=== PATIENT | male | born 1975 | race Two or more races ===

== ENCOUNTER → 2017-06-18 10:26 | Outpatient (CLI) | payer OTHER, SELFPAY ==
--- NOTE | 2017-06-18 15:15 | ASPS_PTH ---
PATIENT: AMY NUNEZ LOC: [facility] U#:[id number] AGE/SX: 50/M ROOM: RE06/18/[address]: Dr. Dedrick Suero MD : 1975 BED: DIS: SPEC #: [id number] RECD: 06/19/17 10:18 STATUS: EVERARDO ARETHA #: [id number] DOT: 06/18/17 15:[address]: Dedrick Suero DEPT: CYTOLOGY RECD BY: Ricardo Bettencourt ENTERED: 06/19/17 12:04 SP TYPE: ASPIRATION OTHR DR: Dr. Adria Esparza MD Tissues: A - Thyroid gland, NOS B - Thyroid gland, NOS C - Thyroid isthmus Procedures: Pap Stain (control) Special Stain Group II Cytology Other HEADER OPERATION: Thyroid FNA x3 PRE-OP DIAGNOSIS: Bilateral thyroid nodules TISSUE SUBMITTED: A ? Right thyroid slides (4), B ? Left thyroid slides (6), C ? Isthmus slides (6) DIAGNOSIS CYTOLOGY A. Fine needle aspiration, right thyroid nodule (smears): Adequate for evaluation. Benign, consistent with colloid nodule. Chronic inflammation. B. Fine needle aspiration, left thyroid nodule (smears): Follicular nodule of uncertain significance. See cytology study and comment. C. Fine needle aspiration, thyroid isthmus (smears): Adequate for evaluation. Negative, consistent with colloid nodule. Mild chronic inflammation. AM:benita 06/20/17 COMMENT B. Clinical correlation is suggested. CYTOLOGY STUDY Slides are reviewed. B. The specimen contains follicular cells in microfollicular pattern. The pattern contains minimal chronic inflammation. CYTOLOGY GROSS A - Received are four smears labeled with the patient's name and designated per the requisition as right thyroid. Submitted for staining. B - Received are six smears labeled with the patient's name and designated per the requisition as left thyroid. Submitted for staining. C - Received are six smears labeled with the patient's name and designated per the requisition as isthmus. Submitted for staining. 06/19/17 TC:? CPT: 14238 x3
== END ==
PROVIDERS: Family Provider Family Medicine; PCP Family Medicine; Visit Provider Surgery
DX: E04.1 Nontoxic single thyroid nodule (principal)
CPT/HCPCS: 88161; 88313

== ENCOUNTER 2017-07-23 09:35 | Observation (INO) | payer OTHER, SELFPAY ==
[2017-07-20 17:12] LABS: Hematocrit 38.7 % (40-54); Hemoglobin 13.5 g/dl (13.0-16.5); Mean Corp Hgb Conc 34.9 g/gl (32-36); Mean Corpuscular Volume 88.8 fL (80-94); Platelet Count 223 K/mm3 (150-450); RBC Distribution Width CV 12.4 % (11.6-14.6); RBC Distribution Width SD 39.8 fl (35.1-43.9); Red Blood Count 4.36 M/mm3 (4.6-6.2); White Blood Count 5.7 K/mm3 (4.4-11.0)
--- NOTE | 2017-07-20 17:12 | EKG12_ITS ---
Test Reason : PREOP Blood Pressure : / mmHG Vent. Rate : 065 BPM Atrial Rate : 065 BPM P-R Int : 148 ms QRS Dur : 108 ms QT Int : 412 ms P-R-T Axes : 045 005 030 degrees QTc Int : 428 ms Normal sinus rhythm with sinus arrhythmia Normal ECG Confirmed by CHARLENE WEBB, KRYSTYNA ([id number]), assignment desk editor MARIANO ZABALA ([id number]) on 07/24/2017 4:38:16 PM Referred By: Dedrick Suero Confirmed By:KRYSTYNA CHANG MD
[2017-07-20 17:14] LABS: Scan Indicated on CBC? Y/N NO
[2017-07-20 18:28] LABS: Anion Gap 6 (5-15); BUN 17 mg/dL (7-18); BUN/Creat Ratio 17.3 RATIO (10-20); Calcium,Total 8.9 mg/dL (8.5-10.1); Chloride 104 mmol/L (98-107); Creatinine, Serum 0.98 mg/dL (0.70-1.30); EST Glomerular Filtration Rate 88 mL/min (>60); Est Glom Filt Rate - Afr Amer 106 mL/min (>60); Glucose 68 mg/dL (74-106); Phosphorus 3.4 mg/dL (2.5-4.9); Potassium 3.9 mmol/L (3.5-5.1); Sodium Level 140 mmol/L (136-145)
[2017-07-23] VITALS (8 sets, daily range): BP systolic 112–158; BP diastolic 67–102; PULSE 54–80; RESP 14–16; TEMP 36.2–36.9; O2SAT 89–98; BMI 39.4
--- NOTE | 2017-07-23 07:15 | THYROID_PTH ---
PATIENT: AMY NUNEZ LOC: [facility] U#:[id number] AGE/SX: 42/M ROOM: [facility] RE07/23/[address]: Dr. Dedrick Suero MD : 1975 BED: 1 DIS: 07/23/2017 SPEC #: [id number] RECD: 07/23/17 09:57 STATUS: EVERARDO CARIAS #: [id number] DOT: 07/23/17 07:[address]: Dedrick Suero DEPT: SURGICAL PATHOLOGY RECD BY: Mesfin Bella ENTERED: 07/23/17 10:17 SP TYPE: THYROID OTHR DR: Dr. Adria Esparza MD Tissues: Thyroid gland, NOS Procedures: Surgery Specimen Level V HEADER OPERATION: Total thyroidectomy PRE-OP DIAGNOSIS: Multiple thyroid nodules TISSUE SUBMITTED: Total thyroid, suture casey anterior-superior aspect of left lobe MICROSCOPIC DIAGNOSIS Thyroid, total thyroidectomy: Colloid nodules with degenerative change. Mild chronic inflammation. No parathyroid glands identified. AM:benita 07/25/17 COMMENT Reference is made to the patient?s previous cytology from 06/20/17 ([id number]) in which benign colloid nodules and follicular nodule of uncertain significance was identified. MICROSCOPIC DESCRIPTION Slides are reviewed. GROSS DESCRIPTION Received in fixative is one container labeled with the patient's name and designated thyroid. The specimen consists of a lobulated moulton thyroid measuring 8 x 7.5 x 2.8 cm and weighing 60 gm. The specimen has been oriented by the surgeon. Serial sections of the right and left lobes and isthmic region reveal lobulated cut surfaces. The lobules have a gelatinous cut appearance. Financial Sales Professional sections are submitted in ten cassettes as follows: 1-4 ? right thyroid lobe, 5 & 6 ? isthmus, 7-10 ? left thyroid lobe. / AM:benita 07/24/17 TC:1 CPT: 82868
--- NOTE | 2017-07-23 07:26 | PCM.DC.GS ---
Discharge Diet: Light diet - advance as tolerated - if you have questions about your diet instructions, please talk to you doctor. Discharge Activity: May Not Drive - for 1 week or while taking narcotic pain medicine. May shower in (days): 1 Lifting Restrictions: 10 pounds Call your doctor if your incision/area has: Continuous Slow Oozing, Sudden Increased Bleeding, Increased Pain/ Swelling, Increased Redness, Foul Smelling Discharge Call your doctor if you observe: Fever of 101 or Higher Suture Line Care: Avoid Pulling/Pushing, Avoid Pinching/Bending Additional Dressing/Incision Instructions:: May protect the incision with gauze and tape if needed to protect from clothing--otherwise, may leave it open Allergies/Adverse Reactions: Allergies doxycycline Allergy (Intermediate, Verified 07/17/17 13:04) rash gardenias Allergy (Intermediate, Uncoded 07/17/17 13:04) rash Medications to take at Discharge acyclovir 400 mg tablet 400 mg PO DAILY tab 06/05/17 armodafinil 250 mg tablet 250 mg PO PRN PRN 06/05/17 cetirizine 10 mg tablet 10 mg PO DAILY 06/05/17 cholecalciferol (vitamin D3) 50,000 unit capsule 200 unit PO DAILY 06/05/17 diphenhydramine 25 mg-acetaminophen 500 mg tablet 1 tab PO QHS PRN 06/05/17 ferrous fumarate 325 mg (106 mg iron) tablet 324 mg PO DAILY tab 06/05/17 multivitamin tablet 1 tab PO DAILY 06/05/17 Primary Care Physician: Adria Esparza MD [Primary Care Provider] - Please Follow Up With: Dedrick Suero MD - [phone] When: Call to make an appointment to be seen in about 10 days.
[2017-07-23] MEDS: Bupivacaine Mpf 0.5% 30 ML VIAL (09:33)
--- NOTE | 2017-07-23 09:55 | OP.PCM_ITS ---
Problem List (1) Multinodular goiter Status: Acute Report of Operation Date of Procedure: 07/23/17 Pre-Operative Diagnosis: Symptomatic multinodular goiter Post-Operative Diagnosis: Same Surgery/Procedure Performed:: Total thyroidectomy Description of Surgical Findings:: Timeout and informed consent was obtained. 42-year-old gent was taken operating. He was placed upon the table. He underwent general ventricular- based anesthesia. Shoulder roll was placed. Head of bed was slightly elevated. Neck was sterilely prepped and draped. A suprasternal transverse incision was created. Sharp dissection carried down through the substance tissue. Platysma was incised. Platysmal flaps are raised. Strap muscles were incised vertically. [place] was gained to the right lobe of thyroid carefully and tediously this was dissected free. The right lobe was noted to be markedly enlarged multinodular. Inferior portion was addressed first as that could be dissected most easily. Found the inferior parathyroid and carefully preserved that. Then address the superior pole control the superior pole vessels. That allowed for gradual rotation of the gland anteriorly and the course of the recurrent laryngeal nerve was identified. I dissected directly upon the posterior aspect of the gland and because of the very close proximity I left a tiny bit of glandular tissue adjacent to the nerve at the ligament of Strong. [place] that I had nice to preserve nerves and nicely preserved parathyroids. The gland was dissected off the anterior surface of the trachea. Hemostasis and dissection throughout this was performed with harmonic scalpel. Where needed hemoclips were used for additional hemostasis. The left lobe is now addressed in a similar fashion. The left lobe technically easier. The inferior and superior poles were much more readily I dissected free the gland was anteriorly rotated and the course of the recurrent laryngeal nerve immediately identified. Great care was taken to preserve the inferior and superior parathyroids the dissection was then performed out the anterior surface of the trachea and the gland was released. The dominant nodules of the right lobe left lobe and isthmus contained within the specimen. The specimen was inspected there is no evidence of a grossly adherent parathyroid. The neck was inspected was noted to be hemostatic. Fibular was placed in each side of the neck. The strap muscles were approximated vertically with interrupted 3-0 Vicryl. The platysma was approximated with the same. Subdermal edges approximately the same. Skin edges proximate interrupted 5-0 Vicryl subdermal stitches. The wilmer-incisional areas anesthetized with 10 cc of 0.5% Marcaine. Surgical glue was tied. Telfa and tape dressings applied. Sponge instrument and needle counts were reported the surgeon be correct. Specimens include total thyroid. Drains none. Blood loss 50 cc. He was taken to the recovery room such condition no apparent complication. Dedrick Suero M.D., F.A.C.S. Type of Anesthesia:: General Anesthesiologist: Nile De Jesus
[2017-07-23] MEDS: Lactated Ringers 1,000 ML 30 ML IV (11:04)
[2017-07-23] MEDS: Calcium Carbonate 500 MG Tablet 1000 MG PO ×2 (11:05→16:46)
[2017-07-23] MEDS: Ondansetron 4 MG/2 ML Vial IV (12:28)
[2017-07-23] MEDS: HYDROcodone Bitartrate/Apap 5/325 Tablet PO (15:21)
--- NOTE | 2017-07-23 17:28 | PCM.PN.SRG ---
Patient Problems: Active and Suspected Problems (Last Reviewed 06/27/17 @ 08:15 by Norma Morales) Multinodular goiter (Acute) Subjective: Nausea abated, minimal pain, clear voice - Physical Exam HEENT: - - supple, NT Vital Signs Temp Pulse Resp BP Pulse Ox 98.2 F 57 L 16 124/86 H 96 07/23/17 15:20 07/23/17 15:20 07/23/17 15:20 07/23/17 15:20 07/23/17 15:20 Oxygen Delivery Method Room Air Weight: 290 lb 5.581 oz Body Mass Index (BMI) 39.4 Intake and Output for Last 24 Hours 07/21/17 07/22/17 07/23/17 23:59 23:59 23:59 Intake Total 2176 / 2176 Balance 2176 / 2176 Laboratory Tests Past 24 Hrs 07/23/17 16:14 Calcium 9.0 Assessment/Plan Active and Suspected Problems (Last Reviewed 06/27/17 @ 08:15 by Norma Morales) Multinodular goiter (Acute) Ca 9 Ready for discharge
== END 2017-07-23 18:01 | disposition home or self-care (01) ==
LOC: SDC 10:11 → MS3 10:11
PROVIDERS: Admitting Provider Surgery; Family Provider Family Medicine; PCP Family Medicine; Visit Provider Surgery
PROC: (CPT 60240; principal; 2017-07-23 07:00)
DX: E04.2 Nontoxic multinodular goiter (principal); I10 Essential (primary) hypertension; G47.30 Sleep apnea, unspecified; Z98.84 Bariatric surgery status; G25.81 Restless legs syndrome; Z79.899 Other long term (current) drug therapy; D64.9 Anemia, unspecified; B00.9 Herpesviral infection, unspecified; F52.9 Unspecified sexual dysfunction not due to a substance or known physiological condition; G47.419 Narcolepsy without cataplexy; E66.9 Obesity, unspecified; Z68.39 Body mass index [BMI] 39.0-39.9, adult; Z71.3 Dietary counseling and surveillance
CPT/HCPCS: 60240; 36415; 80048; 82310; 84100; 85027; 88307; 93005; 96374; 99218; J3010; J7120; G0378; G0379; J2405

== ENCOUNTER → 2017-09-08 11:46 | Outpatient (CLI) | payer OTHER, SELFPAY ==
[2017-09-08 12:41] LABS: Thyroid Stim Hormone (TSH) 2.06 uIU/mL (0.358-3.74)
== END ==
PROVIDERS: Family Provider Family Medicine; PCP Family Medicine; Visit Provider Surgery
DX: E89.0 Postprocedural hypothyroidism (principal)
CPT/HCPCS: 84443